=== PATIENT | female | born 1985 | race African-American/Black ===

== ENCOUNTER 2017-04-02 23:55 | Emergency (ER) | payer OTHER ==
[~2017-04-02 23:55] MED LIST: ALBUTEROL17 GM INH; BACTRIM DS TABL1 TA2; FLAGYL PO; KEFLEX500 MG PO; NO MEDICATIONS; PHENERGAN25 M1; PREDNISONE PO; PROMETHAZINE D118 ML PO; PYRIDIUM PO; ROBAXIN500 MG PO; TAMIFLU75 M1 PO; VOLTAREN75 MG PO; ZOFRAN
== END 2017-04-03 01:21 | disposition home or self-care (01) ==
LOC: SED 23:55
DX: L02.414 Cutaneous abscess of left upper limb (principal); F17.200 Nicotine dependence, unspecified, uncomplicated; Z23 Encounter for immunization; Z88.1 Allergy status to other antibiotic agents
CPT/HCPCS: 10060; 90471; 90715; 99282

== ENCOUNTER 2017-04-17 13:07 | Emergency (ER) | payer OTHER ==
[2017-04-17 13:45] LABS: BASOPHIL% 0.8 % (0-2.5); EOSINOPHIL# 0.1 X10e3 (0-0.7); EOSINOPHIL% 2.3 % (0.0-7.0); HEMOGLOBIN 13.3 gm/dL (12.0-16.0); LYMPHOCYTE# 2.1 X10e3 (1.0-3.5); LYMPHOCYTE% 33.7 % (17.0-45.0); MEAN CELL VOLUME 91.4 FL (83-96); MEAN CORPUSCULAR HEMOGLOBIN 30.3 PG (28-34); MEAN CORPUSCULAR HGB CONC 33.2 g/dL (30-36); MEAN PLATELET VOLUME 8.5 FL (6.5-11.5); MONOCYTE# 0.3 X10e3 (0-1.0); MONOCYTE% 4.9 % (3.0-12.0); NEUTROPHIL# 3.7 X10e3 (1.5-7.1); NEUTROPHIL% 58.3 % (40-75); PLATELET COUNT 225 X10e3 (140-420); RED BLOOD COUNT 4.38 X10e (3.90-5.30); RED CELL DISTRIBUTION WIDTH 13.2 % (11.0-15.5); WHITE BLOOD COUNT 6.3 X10e3 (4.0-10.5)
[2017-04-17 13:46] LABS: DIFF IND NO
[2017-04-17 14:03] LABS: ALBUMIN SERUM 3.8 g/dL (3.5-5.0); BILIRUBIN, DIRECT 0.1 mg/dL (0.0-0.2); BILIRUBIN,INDIRECT 0.4 mg/dL (0.0-0.9); BILIRUBIN,TOTAL 0.5 mg/dL (0.2-2.0); BUN/CREATININE RATIO 12.5; CALCIUM SERUM 8.4 mg/dL (8.4-10.2); CREATININE SERUM 0.8 mg/dL (0.6-1.4); GLOM FILT RATE Estimated 112.4 mL/min (>60); POTASSIUM 3.6 mmol/L (3.5-5.1); PROTEIN TOTAL SERUM 6.8 g/dL (6.0-8.3)
== END 2017-04-17 15:07 | disposition home or self-care (01) ==
LOC: SED 13:07
PROVIDERS: Emergency Medicine
DX: R10.84 Generalized abdominal pain (principal); R11.2 Nausea with vomiting, unspecified; R19.7 Diarrhea, unspecified; Z88.8 Allergy status to other drugs, medicaments and biological substances
CPT/HCPCS: 36415; 80048; 80076; 83690; 84703; 85025; 96361; 96374; 99284; J2405

== ENCOUNTER 2017-04-18 19:42 | Emergency (ER) | payer OTHER ==
--- NOTE | ~2017-04-18 | CR230 ---
[facility] A Service of [facility] & [facility] RADIOLOGY TEXT RESULTS PATIENT: GEORGI CUELLO LOCATION: CFTX : 81 UNIT #: [id number] AGE: [address]: Katharine Thompson SEX: F ORDER DR: [id number] [facility] [address] [place], [place] [address] [id number] E MR#: [id number] Acc #: [id number] NAME: GEORGI CUELLO. : 1985 SEX: F STUDY DATE/TIME: 04/18/2017 20:23 UNIT: [facility] ROOM: STUDY DESCRIPTION: CR Shoulder Min 2 View Rt Attending Physician: Katharine Thompson Pa-C Ordering Physician: Ed José Antonio Lopez M.D. Primary Care Physician: [facility] MEDICAL IMAGING REPORT This report is preliminary unless electronic signature is present EXAM Right shoulder, 3 views, 04/18/2017, 2023 hours. CLINICAL HISTORY 31-year-old woman with complaint of right shoulder pain for 2 hours after a box fell and hit her shoulder. COMPARISON Chest film, 12/17/2015. No prior shoulder film. FINDINGS AP views in internal-external rotation and a scapula Y-view are performed. There is clothing artifact on all images. The glenohumeral joint is normal. There is no fracture or dislocation. The clavicle and acromioclavicular joint appear normal. IMPRESSION 1. Exam is degraded by clothing artifact. 2. There is no fracture, dislocation or degenerative change. Dictated by... Francine Vanessa M.D. THIS IS AN ELECTRONICALLY VERIFIED REPORT Francine Vanessa M.D. at 04/19/2017 6:41 PM Dariela TD: 04/19/2017 10:46 JOB #: [id number] MEDICAL IMAGING REPORT Page 1 of 1 COPY
== END 2017-04-18 21:00 | disposition home or self-care (01) ==
LOC: CFTX 19:42 → CED 19:42 → CFTX 21:00
DX: M25.511 Pain in right shoulder (principal); Z88.1 Allergy status to other antibiotic agents
CPT/HCPCS: 73030; 99283